=== PATIENT | female | born 1985 | race Caucasian/White ===

== ENCOUNTER 2023-07-22 08:10 | Outpatient (CLI) | payer OTHER, SELFPAY ==
[2023-07-22 12:35] LABS: Chlamydia DNA Amplified* Not Detected (No Detected); GC DNA Amplified* Not Detected (No Detected)
== END 2023-07-22 08:11 | disposition home or self-care (01) ==
PROVIDERS: Visit Provider Physician Assistant
DX: Z34.91 Encounter for supervision of normal pregnancy, unspecified, first trimester (principal); O09.521 Supervision of elderly multigravida, first trimester; Z3A.08 8 weeks gestation of pregnancy
CPT/HCPCS: 76817; 87491; 87591

== ENCOUNTER 2023-07-29 07:37 | Outpatient (CLI) | payer OTHER, SELFPAY | END 2023-07-29 07:38 | disposition home or self-care (01) | LOC: NFLDREF 07-30 11:27 | PROVIDERS: Visit Provider Physician Assistant | DX: Z34.81 Encounter for supervision of other normal pregnancy, first trimester (principal); Z82.79 Family history of other congenital malformations, deformations and chromosomal abnormalities; Z67.10 Type A blood, Rh positive | CPT/HCPCS: 86592; 86703; 86704; 86706; 86762; 86787; 86803; 86850; 86900; 86901; 87086; 87340 ==

== ENCOUNTER 2023-09-23 16:52 | Outpatient (CLI) | payer OTHER, SELFPAY | END 2023-09-23 16:53 | disposition home or self-care (01) | LOC: NFLDREF 09-29 06:46 | PROVIDERS: Visit Provider Advanced Practice Midwife | DX: O09.521 Supervision of elderly multigravida, first trimester (principal); Z3A.17 17 weeks gestation of pregnancy | CPT/HCPCS: 81511 ==

== ENCOUNTER 2023-11-29 08:19 | Outpatient (CLI) | payer OTHER, SELFPAY ==
[2023-11-29 08:38] VITALS: BP 103/55; PULSE 94
[2023-11-29 08:40] VITALS: PULSE 98; O2SAT 99
--- NOTE | 2023-11-29 08:42 | CRLHL7_ITS ---
For Patients: As a result of the Century Cures Act, medical imaging exams and procedure reports are released immediately into your electronic medical record. You may view this report before your referring provider. If you have questions, please contact your health care provider. CLINICAL HISTORY: Bleeding with previa check placenta TECHNIQUE: Real time guerrero scale imaging of the fetus was performed as well as color Doppler and spectral Doppler analysis of the umbilical artery. FINDINGS: Sonographic imaging demonstrates a single living intrauterine gestation. Fetus demonstrates a regular cardiac rate of 150 beats per minute. Fetus has a vertex orientation. The placenta lies without evidence of placenta previa. Single deepest vertical pocket: 6.8 cm. Placenta is posterior. Placental edge on image 210 appears to be 5 millimeters from the cervix. Cervix is closed. Prominent vessels near the cervix this is difficult to evaluate given the color gain settings on color Doppler images which makes it difficult to evaluate this area. No perigestational hemorrhage is seen. IMPRESSION: 1. Single live intrauterine gestation. No perigestational hemorrhage is visualized. Low-lying placenta placenta edge appears to be 5 millimeters from the internal os the cervix is closed. 2. Prominent vessels near the cervix. Given the color gain settings on color Doppler images makes it difficult to evaluate this area. Dictated by Marisol Churchill MD @ 11/29/2023 10:11:57 AM (Electronically Signed)
--- NOTE | 2023-11-29 09:44 | W.PM.OBTRAN ---
History of Present Illness History of Present Illness Date Seen: 11/29/23 History of Present Illness: 38 year old at 26.4 weeks gestation by LMP,with ANASTASIA of 03/02/24 , presents with bleeding last evening after sneezing, reports was bright red with clots. She denies any further bleeding since last night. Sterile speculum exam shows closed cervix with minimal old blood in vault. No active bleeding seen. Wet prep, GBS collected. Baby moving naturally: Yes Bleeding: No (none current) Contractions: No Leaking fluid: No Discharge: No Heartburn: No Other comments: Plan to transfer to [facility] Home Medications and Allergies Home Medications ?Medication ?Instructions ?Recorded ?Confirmed ?Type prenat.vits,bailee,nri-[id number] 1 tab PO QDAY 11/15/22 11/06/23 History acetaminophen 500 mg capsule 500 mg PO Q6H PRN 09/23/23 11/06/23 History omeprazole 20 mg capsule,delayed 20 mg PO QDAY 09/23/23 11/06/23 History release Allergies Allergy/AdvReac Type Severity Reaction Status Date / Time No Known Allergies Allergy Unverified 11/06/23 14:46 [facility] Medical History Abnormal screening blood test for Down syndrome in first trimester ?O28.5 - Abnormal chromosomal and genetic finding on screening of mother (ICD-10) Retained products of conception, ?O72.0 - Third-stage hemorrhage (ICD-10) Anxiety ?F41.9 - Anxiety disorder, unspecified (ICD-10) Lipoma of arm ?D17.20 - Benign lipomatous neoplasm of skin and subcutaneous tissue of unspecified limb (ICD-10) Normal spontaneous vaginal delivery ?O80 - Encounter for full-term uncomplicated delivery (ICD-10) Migraine with aura ?G43.109 - Migraine with aura, not intractable, without status migrainosus (ICD-10) Infertility Surgical History History of dilation and curettage ?Z98.890 - Other specified postprocedural states (ICD-10) H/O knee surgery ?Z98.890 - Other specified postprocedural states (ICD-10) Family History Paternal Grandfather Anxiety Diabetes Paternal Grandmother Diabetes Maternal Grandmother Alzheimers disease Social History Narrative: SOCIAL Education: Masters, starting Doctor program this fall 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, 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 Lives with: Samuel, and Suraj Pets: Dog and Cat Abuse: Denies past/present Special Diet: Denies Ok with a blood transfusion: yes Culture or congregation beliefs: denies RISK FACTORS Exercise Times/wk: Walking, daily Depression/Anxiety: Anxiety hx (after daughter, sertraline) Seat Belt Use: Routinely Smoking: Denies past/present Alcohol/day: Denies while , occasional Caffeine: occasional soda Drug Use: Denies past/present Chicken Pox: Yes as a child MRSA: Denies What is your current living situation?: I presently have a place to live Problems where you live: no known problems In the past 12 months, utilities in danger of being shut off: no In past 12 months, lack of transportation kept you from medical appts, meetings, work, or getting things needed for daily living: no In the past 12 mos, have been you worried that your food would run out before you had money to buy more?: never true In the past 12 mos, the food you bought just didn't last and you didn't have money to buy more?: never true Smoking Status: Never smoker How often does anyone, including family, friends and others, physically hurt you: never How often does anyone, including family, friends and others, insult or talk down to you: rarely How often does anyone, including family, friends and others, threaten you with harm: never How often does anyone, including family, friends and others, scream or curse at you: rarely Little interest or pleasure in doing things: not at all Feeling down, depressed, or hopeless: not at all History History 6 Elective abortions 1 Para 2 Spontaneous abortions 2 Hx # Term Pregnancies 2 Ectopic pregnancies Hx # Pregnancies Multiple births Number of Living Children 0 Past Pregnancies Del. Date GA/Weeks Outcome Route wt Inf Gender Labor Lgth Anesthesia Location Provider Compli Unknown spontaneous Unknown elective 03/07/15 40 live - full term vaginal delivery 8 lb 1 oz Male approx 6 hours epidural [facility] 08/22/20 40 live - full term vaginal delivery 7 lb 11 oz Female 2 hours epidural other Delivery Date: 08/22/20 Last Updated by: Vilma Daniel ~ SUSTAINABILITY PROJECT COORDINATOR, SUSTAINABILITY PROJECT COORDINATOR Induction for extra fluid, retained placenta D&C OB - H&P: Exam Physical Exam Vital signs: Pulse BP Pulse Ox 94 103/55 L 99 11/29/23 08:38 11/29/23 08:38 11/29/23 08:40 Narrative: Vitals Reviewed Constitutional:? Alert and oriented x3 HEENT:? Normocephalic, atraumatic Neck:? Supple Lungs:? Clear to auscultation bilaterally Heart:? Regular rate and rhythm, no murmur, rub or gallop Abdomen:? Soft, nontender, and gravid. Vertex by Rene's, confirmed with cervical exam. Extremities:? No edema or erythema Cervix: deferred with previa NST: 145 bpm/moderate variability/+accelerations/-decelerations/no contractions Assessment and Plan Assessment and plan (1) Placenta previa: Status: Acute Plan at 26.4 weeks With first episode of bleeding Known placenta previa with verification today by transvaginal ultrasound CBC and coagulation labs sent, GBS sent Betamethasone first dose Transfer care to higher level. [facility] accepting transfer of care.
[2023-11-29] MEDS: BETAMETHASONE SOD PHOS/ACETATE 6 MG/ML ML 12 MG IM (09:56)
[2023-11-29 10:01] LABS: Clue Cells No Clue Cells Seen (None Seen); Trichomonas No Trichomonas Seen (None Seen); Yeast No Yeast Seen (None Seen)
[2023-11-29 10:27] LABS: INR 0.94 (0.91-1.10); Prothrombin Time 13.1 Seconds
[2023-11-29 10:29] LABS: Partial Thromboplastin Time* 26 Seconds (23-33)
[2023-11-29 10:30] LABS: Fibrinogen* 397 mg/dL (200-450)
[2023-11-29 10:39] VITALS: BP 110/65; PULSE 84; RESP 16; TEMP 37.1
[2023-11-29 10:42] LABS: Basophils Absolute Auto 0.03 K/uL (0.00-0.30); Basophils Percent Auto 0.4 % (0.0-3.0); Eosinophils Absolute Auto 0.16 K/uL (0.00-0.50); Hematocrit 34.1 % (33.0-51.0); Hemoglobin* 11.6 gm/dL (12.0-16.0); Immature Granulocytes Abs Auto 0.03 K/uL (0.00-0.30); Immature Granulocytes Pct Auto 0.4 %; Lymphocytes Percent Auto 14.9 % (20-44); Mean Corpuscular HGB Conc 34 gm/dL (32-36); Mean Corpuscular Hemoglobin 31 pg (26-34); Mean Corpuscular Volume 92 fL (80-100); Monocytes Percent Auto 4.5 % (0.0-11.0); Neutrophils Percent Auto 77.8 % (42.0-72.0); Platelet Count* 265 K/uL (140-440); RDW Coefficient of Variation % 13.1 % (11.5-15.5); White Blood Count* 7.83 K/uL (4.50-11.00)
[2023-11-29 10:43] LABS: Slide Review Reflex No
--- NOTE | 2023-11-29 12:39 | PC.OBNST ---
NST Note NST Note Start: 11/29/23 08:45 Freq: ONCE Status: Active Protocol: Document 11/29/23 12:31 WK (Rec: 11/29/23 12:39 WK [id number]) NST Note 6 Para (# of births) 2 EDC 03/02/24 Gestational Age In Weeks & Days 26 Weeks & 4 Days Patient Presented with Complaint(s) of Vaginal bleeding Other Complaints Pt has a known hx of a previa. Pt reported having a gush of bleeding after sneezing last evening. Pt estimates approx 2 tablespoons. She also reports doing a lot of yard work yesterday. 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 This morning noted some red tinge to toilet paper when she wiped and a couple mucousy clots in the toilet after wiping So she came in for evaluation. Reactive Yes Appropriate for Gestational Age Yes RN Kevon RNC Date 11/29/23 Reactive Yes Appropriate for Gestational Age Yes RN Ministerio RN Date 11/29/23 OB NST charge Yes Complete NST Note via Write Note Yes The provider's electronic signature indicates the NST is reactive/appropriate for gestational age. *Note to provider: If an addendum is required, open the patient's chart and click on the note under the Nurse/Allied Health tab.
[2023-11-30 11:09] LABS: Strep B DNA Probe Negative (Negative)
[2023-11-30 11:40] LABS: Strep B Susceptibility Needed? No
== END 2023-11-29 10:50 | disposition short-term general hospital (02) ==
LOC: OB OUT 08:20 → OB 08:35
PROVIDERS: Obstetrics & Gynecology; Visit Provider Advanced Practice Midwife
DX: O44.02 Complete placenta previa NOS or without hemorrhage, second trimester (principal); Z3A.26 26 weeks gestation of pregnancy
CPT/HCPCS: 36415; 59025; 76815; 76817; 85025; 85384; 85610; 85730; 87081; 87210; 87653; G0463; J0702

== ENCOUNTER 2023-11-29 10:40 | Outpatient (CLI) | payer OTHER, SELFPAY | END 2023-11-29 10:41 | disposition home or self-care (01) | LOC: AMB 12-14 07:06 | PROVIDERS: Visit Provider Family Medicine | DX: O44.02 Complete placenta previa NOS or without hemorrhage, second trimester (principal); Z3A.26 26 weeks gestation of pregnancy | CPT/HCPCS: A0425; A0427 ==

== ENCOUNTER 2023-12-10 08:31 | Outpatient (CLI) | payer OTHER, SELFPAY | END 2023-12-10 08:32 | disposition home or self-care (01) | LOC: NFLDREF 08:32 | PROVIDERS: Visit Provider Advanced Practice Midwife | DX: Z34.92 Encounter for supervision of normal pregnancy, unspecified, second trimester (principal) | CPT/HCPCS: 86592 ==

== ENCOUNTER 2024-01-08 15:24 | Outpatient (CLI) | payer OTHER, SELFPAY ==
--- NOTE | 2024-01-08 15:30 | CRLHL7_ITS ---
For Patients: As a result of the Century Cures Act, medical imaging exams and procedure reports are released immediately into your electronic medical record. You may view this report before your referring provider. If you have questions, please contact your health care provider. INDICATION: uterine size for dates discrepancy, placenta previa COMPARISON: 11/29/2023 TECHNIQUE: Real time guerrero scale imaging of the fetus was performed. FINDINGS: Sonographic imaging demonstrates a single living intrauterine gestation. Fetus demonstrates a regular cardiac rate of 138 beats per minute. Fetus has a transverse position, head maternal left. The placenta lies posteriorly with placenta previa. Yarnell area of decreased echogenicity associated with the lower uterine segment placenta measuring 5.3 x 1.6 x 2.2 cm. Amniotic fluid volume appears normal and there is a single deepest vertical pocket: 5.9 cm. The estimated weight is 2308gm which lies at the 88th %. BPD 68th percentile. HC< 97th percentile. AC 96th percentile. FL 28th percentile. The HC/AC ratio measures 1.05 range (0.95-1.11). IMPRESSION: Sonographic gestational age 34 weeks 0 days and a sonographic due date of 02/19/2024. Sonographic age 12 days ahead of the clinical age. Estimated weight 88th percentile. Abdominal circumference is 96th percentile. HC< 97th percentile. Posterior placenta with placenta previa. Yarnell hypoechoic area at the base of the placenta near the cervix measuring 5.3 x 1.6 x 2.2 cm, by report previously imaged at [facility]. Continued follow-up recommended. Dictated by Kayode Posada MD @ 01/09/2024 6:55:35 AM (Electronically Signed)
== END 2024-01-08 15:25 | disposition home or self-care (01) ==
LOC: US 15:25
PROVIDERS: Visit Provider Physician Assistant
DX: O36.5930 Maternal care for other known or suspected poor fetal growth, third trimester, not applicable or unspecified (principal); Z3A.34 34 weeks gestation of pregnancy; O44.03 Complete placenta previa NOS or without hemorrhage, third trimester
CPT/HCPCS: 76816

== ENCOUNTER 2024-02-06 09:32 | Outpatient (CLI) | payer OTHER, SELFPAY ==
[2024-02-07 13:32] LABS: Strep B DNA Probe Negative (Negative)
[2024-02-07 13:43] LABS: Strep B Susceptibility Needed? No
== END 2024-02-06 09:33 | disposition home or self-care (01) ==
LOC: NFLDREF 09:37
PROVIDERS: Visit Provider Obstetrics & Gynecology
DX: Z34.83 Encounter for supervision of other normal pregnancy, third trimester (principal)
CPT/HCPCS: 87081; 87653

== ENCOUNTER 2024-02-10 06:43 | Inpatient (IN) | payer OTHER, SELFPAY ==
[2024-02-10] VITALS (31 sets, daily range): BP systolic 88–125; BP diastolic 56–70; PULSE 50–99; RESP 16–20; TEMP 36.2–36.5; O2SAT 95–100; BMI 29.9
[2024-02-10] MEDS: LACTATED RINGERS 1000 ML 1,000 ML IV (07:21)
[2024-02-10 07:28] LABS: Basophils Absolute Auto 0.02 K/uL (0.00-0.30); Basophils Percent Auto 0.2 % (0.0-3.0); Eosinophils Absolute Auto 0.12 K/uL (0.00-0.50); Eosinophils Percent Auto 1.4 % (0.0-7.0); Hematocrit 33.7 % (33.0-51.0); Hemoglobin* 11.5 gm/dL (12.0-16.0); Immature Granulocytes Abs Auto 0.03 K/uL (0.00-0.30); Immature Granulocytes Pct Auto 0.3 %; Lymphocytes Percent Auto 16.4 % (20-44); Mean Corpuscular HGB Conc 34 gm/dL (32-36); Mean Corpuscular Hemoglobin 31 pg (26-34); Mean Corpuscular Volume 91 fL (80-100); Monocytes Percent Auto 4.9 % (0.0-11.0); Neutrophils Percent Auto 76.8 % (42.0-72.0); Platelet Count* 238 K/uL (140-440); RDW Coefficient of Variation % 12.9 % (11.5-15.5); Red Blood Count 3.71 m/uL (4.00-5.20); White Blood Count* 8.61 K/uL (4.50-11.00)
[2024-02-10 07:30] LABS: Slide Review Reflex No
--- NOTE | 2024-02-10 07:47 | W.PM.LDBA ---
Subjective History of Present Illness Date Seen: 02/10/24 Narrative: Patient is being admitted to Labor and Delivery for delivery due to marginal placenta previa. She is a 39 year old at 37 0/7 weeks gestation. Her full history and physical was dictated by Dr. Lim on 02/06/24. Please see this for details. Specific Issues/Plans H&P done on 02/06/[address] Lim. # Posterior Marginal Placenta Previa- between 1-2cm MFM US on 01/20/24 - Placenta previa noted on level II - Repeat u/s 26.4 wks in triage:Low-lying placenta placenta edge appears to be 5 millimeters from the internal os the cervix is closed. Prominent vessels near the cervix. - MFM US: complete posterior sinus placenta previa, no evidence of placenta accreta spectrum, but per her, concern expressed since it has not moved at all. Has further evaluation scheduled. - Bleeding episode at 26 4/7 weeks, transferred to [place], Received BMZ 11/28-11/29 - Has had follow up US with MFM as below. - Strict pelvic rest and no strenuous activity. - Repeat US evaluation of placenta at 36 weeks, if still between 1-2cm from cervix, patient prefers scheduled delivery at 37 weeks. # AMA [id number]: negative Level 2 US: Posterior placenta, previa. 3 vessel cord. SDP 4.4. EFW 72% No abnormalities noted. # History Down Syndrome previous , 11/2022 elected termination # Heartburn famotidine 20mg BID, stopped Prilosec 20 mg started QD # Anxiety related to last loss. # Bartholin's cyst R 3mm 01/08/24, conservative management Flu and covid shots completed with season Imagin10/10/2023: Level 2 ultrasound: Normal anatomy, posterior placenta previa, three-vessel umbilical cord, normal amount of amniotic fluid. 11/29/2023: Low-lying placenta 5 mm from internal os. Prominent vessels near the cervix. Single deepest pocket of amniotic fluid 6.8 cm. 11/30/2023: Posterior placenta complete previa, single deepest pocket 5.8 cm, EFW 55 percentile, impression: Complete posterior sinus placenta previa. Uteroplacental interface appears well defined. No sonographic evidence of placenta accreta spectrum. 01/08/2024: Average gestational age 34 weeks 0 days, EFW: 88th percentile, abdominal circumference 96 percentile, posterior placenta with placenta previa. 01/20/2024: [facility] follow-up: Vertex presentation, posterior placenta, complete previa, three-vessel umbilical cord, normal amount of amniotic fluid. EFW: 57 percentile. Cervix appeared closed and long. Recommendations: Placenta although it appears to have moves somewhat since her last ultrasound and appears somewhat marginal on transvaginal imaging today. Recommendations for mode of delivery are based on the distance from the cervical os in addition to shared decision making with the patient and her provider. On today's ultrasound there is no sonographic evidence of placenta accreta spectrum, however ultrasound cannot always identify all cases of placenta accreta spectrum in her prior a risk with a placenta previous 3%. Plan to schedule a primary delivery at 37 weeks. If the patient is highly motivated for vaginal delivery, I would be reasonable to look 1 more time with ultrasound prior to this scheduled date to see if there has been any further movement of the placenta. OB - Problem Based A/P Additional Plan (1) Placenta previa: Status: Acute Plan Proceed with delivery as planned. Reviewed procedure with patient and . Informed consent signed. Normal hemoglobin and platelets, type and screen ordered. OB Result Labs Labs: Hemoglobin: 11.5mg/dL Platelets: 238 OB Exam Physical Exam Vital signs: Pulse BP 89 102/65 02/10/24 07:03 02/10/24 07:03 Detailed Labor and Delivery Exam Patient Gravid: Yes Fetus (Single) Heart Rate Baseline: 150 Monitor Accelerations: Present Monitor Decelerations: None Jail Variability: Moderate (6-25)
[2024-02-10] MEDS: CEFAZOLIN 2 GM INJ IVP (08:35)
[2024-02-10] MEDS: TRANEXAMIC ACID 100 MG/ML INJ 1000 MG IV (08:52)
[2024-02-10] MEDS: LACTATED RINGERS 1000 ML 1,000 ML 100 ML IV (09:12)
[2024-02-10] MEDS: KETOROLAC 30 MG/ML inj IVP ×3 (09:45→21:17)
--- NOTE | 2024-02-10 09:51 | PM.OBPRCCS ---
Procedure Date of procedure: 02/10/24 Pre-op diagnosis: Marginal placenta previa Post-op diagnosis: same (Suspected Abnormal placentation) Procedure Done: Global Will [facility] bill your pro fee for this procedure?: Yes Blood Loss Measurement Type: QBL (900 and about 50mL at Bakri balloon at end of procedure ) Bakri Used: Yes IV fluids (mL): 1,700 Urine Output (mL): 200 Urine Output Comment: Clear at end of surgery Surgeon: Juan Horton MD Anesthesia Type: Spinal Findings: FINDINGS: Live-born male , vertex LOT presentation, Apgars 6 and 8 at 1 and 5 minutes respectively. weight 7 lb 1 oz. After placenta removal, large sinuses/defects of the myometrium noted to be heavily bleeding on the posterior aspect of the lower uterine segment. Procedure Name: Primary low transverse section, placement of Bakri balloon. Procedure Description: PROCEDURE: After obtaining informed consent, the patient was taken to the operating room where spinal anesthesia was obtained and found to be adequate. She was prepared and draped in the normal sterile fashion in the dorsal supine position with a leftward tilt. A Pfannenstiel skin incision was made with a scalpel about 2 cm above symphysis pubic bone, 12-14 cm in length. This incision was carried down to the underlying layer of fascia with the scalpel. The fascia was incised in the midline and the incision extended laterally. The rectus muscles were then in the midline. Blunt dissection utilized to enter the peritoneal cavity. The Declan O retractor was then placed into the incision. The lower uterine segment was then incised in a transverse fashion with the scalpel. Upon entry into the uterus, clear amniotic fluid was noted. The uterine incision was extended cephalo caudally with blunt finger fractionation. The infant's head was delivered atraumatically, followed by the remainder of the 's body. The nose and mouth were suctioned with the bulb suction. The cord was doubly clamped and cut, after 30 seconds of delayed cord clamping and the was handed off the field for evaluation. The placenta was delivered spontaneously with umbilical cord traction, fundal massage and manual sweep. Manual sweep did find a plane between placenta and myometrium and placenta was delivered. The uterus was cleared of all clots and debris. The posterior lower uterine segment was noted to be bleeding heavily. Myometrial defects/large bleeding sinuses noted and utilizing Vicryl 0 suture, multiple figure of 8 stitches completed to decrease bleeding. A Bakri balloon was then inserted through hysterotomy. The uterine incision was reapproximated in a running locking fashion with a 0 Vicryl suture. The Bakri balloon was inflated with 150mL of sterile saline. I evaluated correct placement vaginally to confirm that the device was close to the lower uterine segment and this is why only 150mL were utilized. No additional bleeding was noted vaginally. I then changed to new sterile gown and gloves and attention was again to the abdomen. A 2nd layer of the same suture was used to imbricate in horizontal fashion. The gutters were inspected and cleared of blood clot. All instruments and retractors were removed. Peritoneum was approximated with Vicryl 3-0 suture. Rectus muscles evaluated and hemostasis secured. The fascia was reapproximated in a running fashion with a looped 0 Vicryl suture. The subcutaneous tissues were irrigated, inspected and hemostasis was assured. The subcutaneous fat layer was reapproximated with running sutures of 3-0 Vicryl. The skin was closed in a subcuticular fashion with 4-0 Monocryl. LiquiBand and dressing were applied. The patient tolerated the procedure well. Sponge, lap, needle, and instrument counts were reported as correct x2. The patient was taken to the recovery room, awake, and in stable condition. She did receive 2 grams of IV Ancef preoperatively. Bakri Ballon will be kept in place for at least the next 12-24 hours, antibiotic prophylaxis has been ordered. Complications: Suspected abnormal placentation, placement of Bakri balloon. Pathology: specimen obtained, sent to pathology (Placenta) Surgery Debrief Performed: Yes Condition: stable Disposition: floor
--- NOTE | 2024-02-10 09:57 | W.ANESCHARGE ---
Anesthesia Charges Start Date/Time Anesthesia Start Date: 02/10/24 Anesthesia Start Time: 08:27 Stop Date/Time Anesthesia Stop Date: 02/10/24 Anesthesia Stop Time: 10:02
--- NOTE | 2024-02-10 10:17 | P.NB_ITS ---
Nerve Block Nerve Block Time Seen by Provider: 09:55 Date Seen: 02/10/24 Type of block requested by surgeon for post-operative analgesia: TAP Side: bilateral Time out performed: Yes Verification of patient name: Yes Verification of date of : Yes Name of person performing procedure: CLexxIndigo Continuous monitoring Was continuous monitoring of O2 sat, B/P, secured entrance monitor, recorded every 15 minutes?: Yes Procedure Checklist: sterile prep, needles and gloves Ultrasound guided. Images saved: Yes Medications given in 5ml increments after negative aspiration: Marcaine %: 0.25 mL: 30 Needle gauge: 21 and Exparel mL: 10 Needle gauge: 21 Patient tolerated procedure well: Yes Block Charges Block Charge (with Pro Fee): TAP Bilateral Use of Ultrasound Machine for Block: Yes- US Guidance/pain block
--- NOTE | 2024-02-10 10:18 | SUR.OPER ---
apgars still to be determined; see OB chart for information
--- NOTE | 2024-02-10 10:25 | SUR.OPER ---
DRAIN ASSESSMENT ADDED UNDER WORKLIST FOR NADIR
--- NOTE | 2024-02-10 10:50 | W.ANESCHARGE ---
Anesthesia Charges Start Date/Time Anesthesia Start Date: 02/10/24 Anesthesia Start Time: 08:27 Stop Date/Time Anesthesia Stop Date: 02/10/24 Anesthesia Stop Time: 10:02
[2024-02-10 12:41] LABS: Basophils Percent Auto 0.1 % (0.0-3.0); Eosinophils Percent Auto 0.2 % (0.0-7.0); Hematocrit 32.3 % (33.0-51.0); Hemoglobin* 10.9 gm/dL (12.0-16.0); Immature Granulocytes Pct Auto 0.2 %; Lymphocytes Percent Auto 6.6 % (20-44); Mean Corpuscular HGB Conc 34 gm/dL (32-36); Mean Corpuscular Hemoglobin 31 pg (26-34); Mean Corpuscular Volume 92 fL (80-100); Monocytes Percent Auto 3.2 % (0.0-11.0); Neutrophils Percent Auto 89.7 % (42.0-72.0); Platelet Count* 196 K/uL (140-440); RDW Coefficient of Variation % 12.9 % (11.5-15.5); Red Blood Count 3.53 m/uL (4.00-5.20); White Blood Count* 15.17 K/uL (4.50-11.00)
[2024-02-10 12:49] LABS: Slide Review Reflex No
[2024-02-10 12:58] LABS: Fibrinogen* 379 mg/dL (200-450); INR 0.96 (0.91-1.10); Partial Thromboplastin Time* 28 Seconds (23-33); Prothrombin Time 13.3 Seconds
[2024-02-10] MEDS: CEFAZOLIN 2 GM in 0.9 % SODIUM CHLORIDE Mini-bag 100 ML IVPB ×2 (16:42→20:30)
[2024-02-11] VITALS (13 sets, daily range): BP systolic 85–93; BP diastolic 52–61; PULSE 64–90; RESP 16–18; TEMP 36.3–36.7; O2SAT 96–98
[2024-02-11] MEDS: KETOROLAC 30 MG/ML inj IVP (03:42)
[2024-02-11] MEDS: SIMETHICONE 80 MG TAB.CHEW PO ×2 (03:42→11:56)
[2024-02-11 06:12] LABS: Hemoglobin* 9.9 gm/dL (12.0-16.0)
--- NOTE | 2024-02-11 07:34 | PM.OBPNVD1 ---
OB - PN:Subj Subjective Date Seen: 02/11/24 Narrative: The patient feels well.? The pain is well controlled with current medications.? She has no new complaints.? Urinary output is adequate and she is voiding without difficulty.? Has a good appetite, is tolerating a general diet, is passing flatus, and has not had a bowel movement.? Has scant amount of rubra lochia.?Barbara fell out at 0100 and bleeding has not increased since. She is ambulating well. She is hand expressing and pumping and is eager to get to see her baby who was transferred to [facility]. Plans to switch to Ibuprofen and Tylenol for pain management today and be up to walk more. She has used simethicone for gas pains and this has been helpful. Planning condoms and vasectomy for contraception.? OB - PN: Obj Exam Physical Exam: Vital signs: Temp Pulse Resp BP Pulse Ox O2 Del Method 98.0 F 64 16 93/61 96 Room Air 02/11/24 03:36 02/11/24 03:36 02/11/24 04:57 02/11/24 03:36 02/11/24 03:36 02/11/24 03:36 Narrative: GENERAL APPEARANCE:? normal affect, alert, no distress MOOD:? appropriate CHEST:? clear to auscultation HEART:? regular rate and rhythm ABDOMEN:? soft, non-tender the uterine fundus is 1 cm below Umbilicus, Midline and is appropriate for the stage of recovery. EXTREMITIES:? normal and minimal edema Incision: Surgical dressing intact with 1 cm of drainage outlined and area not expanding. Urinary Catheter Management: Urethral: Cath placed during this visit: yes, but has since been removed by the nurse Reason for continuing: decision to DC catheter Insertion date: 02/10/24 Insertion time: 08:39 Removal date: 02/10/24 Removal time: 21:30 OB - PN: Obj Data Labs Labs: Laboratory Results - last 24 hr 02/10/24 02/10/24 02/11/24 07:18 12:34 05:58 WBC 15.17 H RBC 3.53 L Hgb 10.9 L 9.9 L Hct 32.3 L MCV 92 MCH 31 MCHC 34 RDW Coeff of Lianne 12.9 Plt Count 196 Neut % (Auto) 89.7 H Lymph % (Auto) 6.6 L [place] % (Auto) 3.2 Eos % (Auto) 0.2 Baso % (Auto) 0.1 Neut # (Auto) 13.60 H Lymph # (Auto) 1.00 [place] # (Auto) 0.50 Eos # (Auto) 0.00 Baso # (Auto) 0.00 Abs Immat Gran (auto) 0.00 Imm/Tot Granulo (auto) 0.2 INR 0.96 APTT 28 Fibrinogen 379 Blood Type A Positive Antibody Screen NEGATIVE OB - PN: A/P Delivery Assessment and Plan (1) Placenta previa: Status: Acute (2) care and examination of lactating mother: Status: Acute (3) delivery delivered: Problem details: for previa Status: Acute (4) Anxiety: Status: Acute Plan day: 1 Plan: routine care Total time spent: Plan: Anticipate discharge early tomorrow morning Signs and symtpoms to report reviewed. Encouraged pumping and hand expression q 3 hours and good PO intake. To switch to ibuprofen and tylenol for pain management if able Encouraged Binder use for comfort and stool softeners prn She will not need any RX for discharge unless we are sending home oxycodone with her. Jose and Ben agree with plan and have no further questions.
[2024-02-11] MEDS: IBUPROFEN 600 MG TABLET PO ×3 (07:54→20:19)
[2024-02-11] MEDS: DOCUSATE SODIUM 100 MG CAPSULE PO (07:54)
[2024-02-11] MEDS: ACETAMINOPHEN 500 MG TABLET 1000 MG PO ×3 (11:52→23:53)
[2024-02-11] MEDS: OXYCODONE 5 MG TABLET PO ×2 (16:29→23:53)
[2024-02-12] MEDS: IBUPROFEN 600 MG TABLET PO (04:58)
[2024-02-12] MEDS: ACETAMINOPHEN 500 MG TABLET 1000 MG PO (06:02)
[2024-02-12] MEDS: OXYCODONE 5 MG TABLET PO (06:02)
[2024-02-12 06:48] LABS: Rapid Plasma Reagin (RPR) Non Reactive (Non Reactive)
--- NOTE | 2024-02-12 06:52 | PM.OBDSVD1 ---
DS: Providers Provider Date Seen: 02/12/24 Date of admission: 02/10/24 06:43 Primary care physician: Not a Local Provider Admitting Clinician: Ila Horton MD Attending Physician on discharge: Liliana Cagle CNM DS: Diagnosis Discharge Diagnosis (1) care and examination of lactating mother: Status: Acute (2) delivery delivered: Status: Acute Problem details: for previa Exam Narrative: Exam Narrative: GENERAL APPEARANCE:? normal affect, alert, no distress MOOD:? appropriate CHEST:? clear to auscultation HEART:? regular rate and rhythm ABDOMEN:? soft, non-tender the uterine fundus is 1 below Umbilicus, Midline and is appropriate for the stage of recovery. EXTREMITIES:? normal and trace edema INCISION: Healing well, no surrounding erythema, abnormal induration or discharge Const: Vital Signs, click to edit/add: Vital Signs - 24 hr 02/11/24 06:56 02/11/24 07:51 02/11/24 07:56 Temperature 97.6 F Pulse Rate [Pulse Oximeter] 90 Respiratory Rate 16 16 16 Blood Pressure [Ri ght Arm] 93/59 L Pulse Oximetry 97 Oxygen Delivery Me thod Room Air 02/11/24 14:11 02/11/24 16:34 02/11/24 19:58 Temperature 98.1 F 97.4 F L Pulse Rate [Pulse Oximeter] 82 77 Respiratory Rate 18 16 Blood Pressure [Ri ght Arm] 86/54 L 93/59 L 93/59 L Pulse Oximetry 97 96 Oxygen Delivery Me thod Room Air Room Air 02/11/24 23:50 Temperature 98 F Pulse Rate [Pulse Oximeter] 83 Respiratory Rate 16 Blood Pressure [Ri ght Arm] 85/52 L Pulse Oximetry 98 Oxygen Delivery Me thod Room Air Documenting provider has reviewed patient's vital signs: yes OB - DS: Summary Hospital Course Hospital Course: Jose is a 39 y.o. G 6 P 3033 who was admitted to [facility] for primary c/s for placenta previa. ?She had a section that was complicated by abnormal placenta implantation and Bakri placement, has since been removed. The patient feels well. ?The pain is well controlled with current medications. ?She has no new complaints. ?She is breast feeding and reports things are going well. the patient has done well.? Vitals have been stable.? She has remained afebrile.? Has a good appetite, is tolerating a general diet. ?She is voiding without difficulty.? She is passing gas and has not had a bowel movement.? She is ambulating and denies any dizziness.? Has small amount of rubra lochia. She is planning vasectomy for prevention. Of note, patient BP runs low. This is normal for her. She is asymptomatic. Problems: Anemia plan: Discharge home with baby. Follow up in 2 weeks and 6 weeks. , may see if needed Hgb 9.9. Iron supplement ordered orally every other day, has been taking during Peripartum Data Infant delivery method: Primary C/S; Non-Labored Procedures: Procedures Operation Date: 02/10/24 08:45 Actual Procedure Side Surgeon p Primary Low Transverse Section; Bakri Insertion Ila Horton MD complications: none Gender: Male Infant Discharge Plan: Home Status at Discharge Functional status at discharge: independent ambulation Overall status at discharge: patient is progressing back to baseline Time Spent with Patient Time attestation: Total time spent providing and/or coordinating discharge services: Time spent: Less than 30 minutes Discharge Plan Discharge Disposition: Home, Self-Care Date of Admission: 02/10/24 06:43 Attending Provider on Discharge: Liliana Cagle Primary Care Provider: Provider,Not a Local Condition: Stable Anticipated Discharge Date/Time: 02/12/24 07:30 Discharge Medications: New ibuprofen 600 mg Tablet 600 mg PO Q6H PRN (Reason: Pain) Qty: 60 0RF oxycodone 5 mg Tablet 5 - 10 mg PO Q4H PRN (Reason: Pain) Qty: 15 0RF acetaminophen 500 mg Tablet 1,000 mg PO Q6H PRN (Reason: Pain) Qty: 0 0RF docusate sodium 100 mg Capsule 100 mg PO DAILY Qty: 0 0RF Continued omeprazole 20 mg capsule,delayed release(DR/EC) 20 mg PO QDAY prenat.vits,bailee,[id number] Tablet 1 tab PO QDAY Unisom (doxylamine) 25 mg tablet 25 mg PO QHS PRN Discontinued acetaminophen 500 mg capsule 500 mg PO Q6H PRN Discharge Orders: Discharge Order (Routine); Ordered 02/12/24 Ordered By: Liliana Cagle Patient Education: OB Over the Counter Medication Information, OB /Breast Feeding Additional Instructions: Discharge instructions were reviewed with the patient including signs and symptoms of infection and home going medications Lifting Restrictions: 20 pounds for 6 weeks No not submerge incision under water X 2 weeks? Nothing vaginally for 6 weeks: no tampons or intercourse Do not drive while taking narcotic pain medication(s) Off Work or School for 8 weeks 2-week visit: incision check, discuss infant feeding concerns, review control options and screen for anxiety/depression. 6-week visit for an annual exam. consultation services are available to all mothers and babies for the first year after delivery.? To make an appointment, please call [phone]. Activity Level: Activity as Tolerated Discharge Diet: Regular Follow Up Appointments: [facility] [Provider Group] Forms: [employer] Info Instructions
== END 2024-02-12 08:20 | disposition home or self-care (01) | DRG 787 ==
PROVIDERS: Admitting Provider Obstetrics & Gynecology; Visit Provider Obstetrics & Gynecology
PROC: 10D00Z1 Extraction of Products of Conception, Low, Open Approach (ICD-10-PCS; CPT 59514; principal; 2024-02-10 08:45)
DX: O44.23 Partial placenta previa NOS or without hemorrhage, third trimester (principal); O72.1 Other immediate postpartum hemorrhage; G89.18 Other acute postprocedural pain; O99.344 Other mental disorders complicating childbirth; F41.9 Anxiety disorder, unspecified; O34.83 Maternal care for other abnormalities of pelvic organs, third trimester; N75.0 Cyst of Bartholin's gland; R12 Heartburn; Z82.79 Family history of other congenital malformations, deformations and chromosomal abnormalities; Z3A.37 37 weeks gestation of pregnancy; Z37.0 Single live birth
CPT/HCPCS: 01961; 36415; 64488; 76942; 85018; 85025; 85384; 85610; 85730; 86592; 86850; 86900; 86901; 88307; A9270; C9290; J0665; J0690; J1885; J2274; J2371; J2405; J2590; J7120

== ENCOUNTER 2024-02-27 09:19 | Outpatient (CLI) | payer OTHER, SELFPAY ==
--- NOTE | 2024-02-27 10:36 | W.PM.LAC.MC ---
Consult Note - Mom Date of Visit Date of visit: 02/27/24 residential property consultant: Rachna Almaraz Visit Code: Visit Patient's Information Phone number: [phone] : 7 Para: 3 Allergies No Known Allergies Allergy (Verified 02/24/24 09:03) Mother's Medical History: Medical History (Updated 02/15/24 @ 11:17 by Cristal Cazares MD) Placenta previa ?O44.00 - Complete placenta previa NOS or without hemorrhage, unspecified trimester (ICD-10) Abnormal screening blood test for Down syndrome in first trimester ?O28.5 - Abnormal chromosomal and genetic finding on screening of mother (ICD-10) Retained products of conception, ?O72.0 - Third-stage hemorrhage (ICD-10) Anxiety ?F41.9 - Anxiety disorder, unspecified (ICD-10) Lipoma of arm ?D17.20 - Benign lipomatous neoplasm of skin and subcutaneous tissue of unspecified limb (ICD-10) Normal spontaneous vaginal delivery ?O80 - Encounter for full-term uncomplicated delivery (ICD-10) Migraine with aura ?G43.109 - Migraine with aura, not intractable, without status migrainosus (ICD-10) Infertility Work Plans: return to work beginning of May Delivery Information Delivery type: Repeat Section Weeks Gestation: 37 weeks Gestational Age: AGA Weight: 3.21 kg Baby's Information Medications: none currently; gags on Vitamin D; plans on adding in when starts doing a bottle of EBM a day Baby's Age at Visit: 17 days Jaundice: No Reason for Consult Reason for Consult: painful, shallow latch, clicking sounds when nursing Past Experience Past Experience: Yes Current Frequency of Day Feedings: every 2-3 hours Frequency of Night Feedings: every 3 hours, 4 at most Both Breasts: Yes (sometimes) Suck: strong Latch: can start out deep, but then comes down to end of nipple Length of Time: 15-30 min total Goals: at least 1 year Pumping Pumping: No Supplementing EMB Supplement: No Formula Supplement: No Baby Elimination Number of Wet Diapers a Day: 6 or more/day Number of BM a Day: 6 or more/day; stools are yellow/seedy Breast/Nipple Condition Breast Information: Breasts, full rounded; no erythema Engorgement: No Maternal Nipple Condition - Left: Common Nipple Maternal Nipple Condition - Right: Common Nipple Sore Nipples: Yes (sore w/nursing; mom reports a 7/10 with initial latch, occs gets better) Interventions for Sore Nipples: Soothies Onsite Pre-Feed weight: 3.992 kg (clothed and diapered) Post-Feed weight: 4.02 kg Milk Transferred (mL): 28 (nursing for about 5 minutes on one breast) Pre-Nursing Left Nipple: Within Normal Limits Pre-Nursing Right Nipple: Within Normal Limits Post-Nursing Left Nipple: Within Normal Limits Post-Nursing Right Nipple: Within Normal Limits Assessments/Interventions Assessments/Interventions: Worked with mom to get an asymmetrical latch; nose across from nipple, lead with chin, bring baby in quickly and nipple pointed to roof of mouth. Hold baby close with nose and chin into breast. Mom able to achieve hold and reports less nipple pain with initial latch. Sachin transferred 28 ml of milk in less than 5 minutes of nursing. Discussed given early at 37 weeks, may need help with this position for a few more weeks before able to achieve latch without as much help from mom. Discussed overactive milk letdown phase adding to his clicking sounds; trying to manage flow. Showed techniques to slow down initial flow with pressure on breast for short bursts. Also, allow him to come off breast, allow milk flow to settle, then dab dry and relatch again with wide, deep latch. Mom with history of plugged ducts; handout provided (from www.[employer]acted.org to help prevent as well as treatment phase if needed. Reassured that every feeding experience is different and it may not happen this time. Time spent reviewing chart notes as well as face to face time with mom and baby: 60 minutes Meds Home Medications and Allergies Home Medications ?Medication ?Instructions ?Recorded ?Confirmed ?Type prenat.vits,bailee,[id number] 1 tab PO QDAY 11/15/22 02/27/24 History Allergies Allergy/AdvReac Type Severity Reaction Status Date / Time No Known Allergies Allergy Verified 02/24/24 09:03
== END 2024-02-27 09:20 | disposition home or self-care (01) ==
LOC: OB LAC 09:20
PROVIDERS: Visit Provider Obstetrics & Gynecology
DX: Z39.1 Encounter for care and examination of lactating mother (principal)
CPT/HCPCS: G0463

== ENCOUNTER 2025-06-07 14:57 | Outpatient (CLI) | payer OTHER, SELFPAY | END 2025-06-07 14:58 | disposition home or self-care (01) | PROVIDERS: Visit Provider Physician Assistant | DX: Z13.9 Encounter for screening, unspecified (principal) | CPT/HCPCS: 80053; 80061; 84443 ==